=== PATIENT | male | born 1940 | race Caucasian/White ===

== ENCOUNTER 2021-02-14 13:51 | Inpatient (IN) ==
[2021-02-14] MEDS ORDERED: 0.9 % Sodium Chloride 1,000 ML IVC ONE (14:13)
[2021-02-14 14:39] LABS: Basophils # 0.1 K/mcL (0.0-0.2); Basophils % 0.4 %; Eosinophils % 0.1 %; Hematocrit 41.7 % (37.5-50.1); Hemoglobin 13.8 g/dL (12.9-16.9); Immature Granulocytes % 0.6 % (0-4); Lymphocytes # 0.5 K/mcL (0.6-4.6); Lymphocytes % 4.1 %; Mean Corpuscular HGB Conc 33.1 g/dL (31.6-35.5); Mean Corpuscular Volume 84.6 fL (83.0-100.0); Mean Platelet Volume 11.2 fL (9.4-12.4); Monocytes # 1.7 K/mcL (0.0-1.3); Platelet Count 237 K/mcL (140-400); Red Blood Count 4.93 M/mcL (4.19-5.50); Segmented Neutrophils % 79.8 %; White Blood Count 11.3 K/mcL (4.3-11.1)
[2021-02-14 14:46] LABS: VBG HCO3 26 mEq/L (21-27); VBG PCO2 40 mmHg (41-51); VBG PH 7.42 pH Units (7.32-7.42); VBG PO2 37 mmHg (25-50)
[2021-02-14 14:47] LABS: INR 1.2; Prothrombin Time 14.3 Seconds (9.4-12.1)
[2021-02-14 14:49] LABS: Activated Partial Thrombo Time 28.2 Seconds (26.0-36.0)
[2021-02-14 14:59] LABS: Alanine Aminotransferase 35 Units/L (7-52); Albumin 3.5 g/dL (3.5-5.7); Albumin/Globulin Ratio 0.9 (1.1-2.2); Alkaline Phosphatase 66 Units/L (34-104); Aspartate Amino Transferase 33 Units/L (13-39); BUN/Creatinine Ratio 29 (6-26); Bilirubin,Direct 0.3 mg/dL (0.0-0.2); Bilirubin,Indirect 0.5 mg/dL (0.0-1.0); Bilirubin,Total 0.8 mg/dL (0.3-1.0); Blood Urea Nitrogen 37 mg/dL (8-23); Calcium 9.3 mg/dL (8.6-10.3); Carbon Dioxide 29 mEq/L (23-29); Chloride 94 mEq/L (98-107); Globulin 3.7 g/dL (2.4-3.5); Glucose 152 mg/dL (70-105); Magnesium 2.1 mg/dL (1.6-2.6); Osmolality,Calculated 282 (280-300); Phosphorous 2.8 mg/dL (2.7-4.5); Potassium 4.3 mEq/L (3.5-5.1); Sodium 130 mEq/L (136-145); Total Protein 7.2 g/dL (6.4-8.9); Troponin I < 0.03 ng/mL (< 0.04); eGFR For African Americans > 60 (> 60); eGFR For Non-African Americans 55 (> 60)
[2021-02-14 15:10] LABS: Bilirubin,Urine Negative (Negative); Blood,Urine Large (Negative); Clarity,Urine Clear (Clear); Color,Urine Yellow (Yellow); Glucose,Urine (UA) Normal (Normal); Ketones,Urine Negative (Negative); Leukocyte Esterase,Urine Negative (Negative); Nitrite,Urine Negative (Negative); PH,Urine 5.5 pH Units (5.0-8.0); Protein,Urine 100 mg/dL (Neg-Trace); Specific Gravity,Urine 1.025 (1.010-1.025)
[2021-02-14 15:20] LABS: RBC,Urine 50-100 per hpf (0-3)
[2021-02-14 15:21] LABS: Squamous Epithelial Cell,Urine Few per hpf (None-Few)
[2021-02-14] MEDS ORDERED: levoFLOXacin 750 MG/150 ML 750 MG/150 ML BAG IVPB ONE (15:43)
[2021-02-14] MEDS ORDERED: Naloxone 0.4 MG/ML INJ IVP PRN (16:07)
[2021-02-14] MEDS ORDERED: Ondansetron 4 MG/2 ML VIAL IVP PRN (16:07)
[2021-02-14] MEDS ORDERED: Acetaminophen 325 MG TABLET PO PRN (16:07)
[2021-02-14] MEDS ORDERED: Ipratropium/Albuterol Neb 3 ML IH PRN (16:13)
[2021-02-14] MEDS: Nicotine 2 MG GUM BC PRN (21:03)
[2021-02-15 06:51] LABS: Basophils % 0.4 %; Eosinophils % 0.3 %; Hematocrit 38.2 % (37.5-50.1); Hemoglobin 12.3 g/dL (12.9-16.9); Immature Granulocytes % 0.9 % (0-4); Lymphocytes # 0.9 K/mcL (0.6-4.6); Lymphocytes % 10.3 %; Mean Corpuscular HGB Conc 32.2 g/dL (31.6-35.5); Mean Corpuscular Hemoglobin 27.6 pg (28.0-33.3); Mean Corpuscular Volume 85.8 fL (83.0-100.0); Mean Platelet Volume 11.7 fL (9.4-12.4); Monocytes # 1.4 K/mcL (0.0-1.3); Neutrophils # 6.7 K/mcL (1.6-8.9); Platelet Count 224 K/mcL (140-400); Red Blood Count 4.45 M/mcL (4.19-5.50); Segmented Neutrophils % 73.1 %; White Blood Count 9.2 K/mcL (4.3-11.1)
[2021-02-15 07:20] LABS: BUN/Creatinine Ratio 26 (6-26); Blood Urea Nitrogen 31 mg/dL (8-23); Calcium 9.2 mg/dL (8.6-10.3); Carbon Dioxide 28 mEq/L (23-29); Chloride 97 mEq/L (98-107); Glucose 103 mg/dL (70-105); Magnesium 2.1 mg/dL (1.6-2.6); Osmolality,Calculated 283 (280-300); Potassium 4.1 mEq/L (3.5-5.1); Sodium 133 mEq/L (136-145); eGFR For African Americans > 60 (> 60); eGFR For Non-African Americans 59 (> 60)
[2021-02-15] MEDS: amLODIPine 5 MG TABLET PO SCH (09:24)
[2021-02-15] MEDS: Furosemide 40 MG TABLET PO SCH (09:24)
[2021-02-15] MEDS: Aspirin Enteric Coated 81 MG Tablet PO SCH (09:24)
[2021-02-15] MEDS: Nicotine 2 MG GUM BC PRN (09:25)
[2021-02-15] MEDS: Trolamine Salicylate/Aloe Vera 85 APPL/85 GM TUBE TP PRN (16:27)
[2021-02-16] MEDS: amLODIPine 5 MG TABLET PO SCH (09:21)
[2021-02-16] MEDS: Furosemide 40 MG TABLET PO SCH (09:21)
[2021-02-16] MEDS: Aspirin Enteric Coated 81 MG Tablet PO SCH (09:21)
[2021-02-16] MEDS ORDERED: levoFLOXacin 750 MG/150 ML 750 MG/150 ML BAG IVPB SCH (16:00)
[2021-02-16] MEDS: Trolamine Salicylate/Aloe Vera 85 APPL/85 GM TUBE TP PRN (20:55)
[2021-02-17 06:01] LABS: Basophils # 0.1 K/mcL (0.0-0.2); Basophils % 0.7 %; Eosinophils # 0.2 K/mcL (0.0-0.6); Eosinophils % 2.5 %; Hematocrit 41.7 % (37.5-50.1); Hemoglobin 13.5 g/dL (12.9-16.9); Immature Granulocytes % 1.5 % (0-4); Lymphocytes # 1.2 K/mcL (0.6-4.6); Lymphocytes % 16.9 %; Mean Corpuscular HGB Conc 32.4 g/dL (31.6-35.5); Mean Corpuscular Hemoglobin 27.7 pg (28.0-33.3); Mean Corpuscular Volume 85.5 fL (83.0-100.0); Mean Platelet Volume 10.9 fL (9.4-12.4); Monocytes # 0.8 K/mcL (0.0-1.3); Monocytes % 11.1 %; Neutrophils # 4.6 K/mcL (1.6-8.9); Platelet Count 261 K/mcL (140-400); Red Blood Count 4.88 M/mcL (4.19-5.50); Red Cell Distribution Width 12.6 % (11.5-14.5); Segmented Neutrophils % 67.3 %; White Blood Count 6.9 K/mcL (4.3-11.1)
[2021-02-17 06:21] LABS: BUN/Creatinine Ratio 20 (6-26); Blood Urea Nitrogen 24 mg/dL (8-23); Calcium 9.5 mg/dL (8.6-10.3); Carbon Dioxide 30 mEq/L (23-29); Chloride 97 mEq/L (98-107); Glucose 112 mg/dL (70-105); Osmolality,Calculated 285 (280-300); Sodium 135 mEq/L (136-145); eGFR For African Americans > 60 (> 60); eGFR For Non-African Americans 59 (> 60)
[2021-02-17] MEDS: Aspirin Enteric Coated 81 MG Tablet PO SCH (08:11)
[2021-02-17] MEDS: amLODIPine 5 MG TABLET PO SCH (08:11)
[2021-02-17] MEDS: Furosemide 40 MG TABLET PO SCH (08:11)
[2021-02-17] MEDS: Trolamine Salicylate/Aloe Vera 85 APPL/85 GM TUBE TP PRN (20:12)
[2021-02-18 07:02] VITALS: BP 155/76
[2021-02-18] MEDS: Aspirin Enteric Coated 81 MG Tablet PO SCH (07:54)
[2021-02-18] MEDS: amLODIPine 5 MG TABLET PO SCH (07:55)
[2021-02-18] MEDS: Furosemide 40 MG TABLET PO SCH (07:55)
[2021-02-18] MEDS ORDERED: Sennosides/Docusate Sodium TABLET PO SCH (09:30)
== END 2021-02-18 11:20 | disposition other institution (70) | DRG 193 ==
LOC: INPPIK 13:51 → EMEROOPIK 13:51 → INPPIK 17:27
PROVIDERS: ADMIT Family Medicine; ATTEND Family Medicine

== ENCOUNTER 2021-02-16 18:37 | Inpatient (IN) ==
[2021-02-18] MEDS: levoFLOXacin 750 MG TABLET PO SCH (16:58)
[2021-02-18] MEDS: Acetaminophen 325 MG TABLET PO PRN (17:25)
[2021-02-18] MEDS: Trolamine Salicylate/Aloe Vera 85 APPL/85 GM TUBE TP PRN (18:25)
[2021-02-18] MEDS: Sennosides/Docusate Sodium TABLET PO SCH (20:13)
[2021-02-19 06:56] LABS: Basophils # 0.1 K/mcL (0.0-0.2); Eosinophils # 0.2 K/mcL (0.0-0.6); Eosinophils % 3.3 %; Hematocrit 40.5 % (37.5-50.1); Hemoglobin 13.2 g/dL (12.9-16.9); Immature Granulocytes % 1.5 % (0-4); Lymphocytes # 1.3 K/mcL (0.6-4.6); Lymphocytes % 18.7 %; Mean Corpuscular HGB Conc 32.6 g/dL (31.6-35.5); Mean Corpuscular Volume 85.8 fL (83.0-100.0); Mean Platelet Volume 10.7 fL (9.4-12.4); Monocytes # 0.8 K/mcL (0.0-1.3); Monocytes % 11.8 %; Neutrophils # 4.3 K/mcL (1.6-8.9); Platelet Count 262 K/mcL (140-400); Red Blood Count 4.72 M/mcL (4.19-5.50); Red Cell Distribution Width 12.6 % (11.5-14.5); Segmented Neutrophils % 63.7 %; White Blood Count 6.7 K/mcL (4.3-11.1)
[2021-02-19 07:17] LABS: BUN/Creatinine Ratio 18 (6-26); Blood Urea Nitrogen 24 mg/dL (8-23); Calcium 9.4 mg/dL (8.6-10.3); Carbon Dioxide 30 mEq/L (23-29); Chloride 98 mEq/L (98-107); Glucose 99 mg/dL (70-105); Osmolality,Calculated 284 (280-300); Potassium 4.1 mEq/L (3.5-5.1); Sodium 135 mEq/L (136-145); eGFR For African Americans > 60 (> 60); eGFR For Non-African Americans 52 (> 60)
[2021-02-19] MEDS: Aspirin Enteric Coated 81 MG Tablet PO SCH (09:53)
[2021-02-19] MEDS: Sennosides/Docusate Sodium TABLET PO SCH ×2 (09:54→20:30)
[2021-02-19] MEDS: Furosemide 40 MG TABLET PO SCH (09:54)
[2021-02-19] MEDS: amLODIPine 5 MG TABLET PO SCH (09:55)
[2021-02-19] MEDS: Trolamine Salicylate/Aloe Vera 85 APPL/85 GM TUBE TP PRN ×2 (14:08→20:47)
[2021-02-19] MEDS: Acetaminophen 325 MG TABLET PO PRN (14:08)
[2021-02-19] MEDS ORDERED: Ondansetron ODT 4 MG TAB.RAPDIS SL PRN (14:34)
[2021-02-20] MEDS: Trolamine Salicylate/Aloe Vera 85 APPL/85 GM TUBE TP PRN ×3 (06:40→21:37)
[2021-02-20] MEDS: Aspirin Enteric Coated 81 MG Tablet PO SCH (10:01)
[2021-02-20] MEDS: Sennosides/Docusate Sodium TABLET PO SCH (10:01)
[2021-02-20] MEDS: Furosemide 40 MG TABLET PO SCH (10:01)
[2021-02-20] MEDS: amLODIPine 5 MG TABLET PO SCH (10:02)
[2021-02-20] MEDS: levoFLOXacin 750 MG TABLET PO SCH (16:24)
[2021-02-20] MEDS: Acetaminophen 325 MG TABLET PO PRN (20:13)
[2021-02-21] MEDS: Acetaminophen 325 MG TABLET PO PRN ×2 (08:18→16:56)
[2021-02-21] MEDS: Aspirin Enteric Coated 81 MG Tablet PO SCH (08:18)
[2021-02-21] MEDS: amLODIPine 5 MG TABLET PO SCH (08:18)
[2021-02-21] MEDS: Furosemide 40 MG TABLET PO SCH (08:18)
[2021-02-21] MEDS: Trolamine Salicylate/Aloe Vera 85 APPL/85 GM TUBE TP PRN ×2 (09:32→21:20)
[2021-02-22] MEDS: Aspirin Enteric Coated 81 MG Tablet PO SCH (08:31)
[2021-02-22] MEDS: Furosemide 40 MG TABLET PO SCH (08:31)
[2021-02-22] MEDS: Acetaminophen 325 MG TABLET PO PRN (08:32)
[2021-02-22] MEDS: amLODIPine 5 MG TABLET PO SCH (08:32)
[2021-02-22] MEDS: levoFLOXacin 750 MG TABLET PO SCH (17:24)
[2021-02-23] MEDS: Aspirin Enteric Coated 81 MG Tablet PO SCH (08:07)
[2021-02-23] MEDS: Furosemide 40 MG TABLET PO SCH (08:07)
[2021-02-23] MEDS: amLODIPine 5 MG TABLET PO SCH (08:07)
[2021-02-23] MEDS ORDERED: E-Z-HD (BARIUM SULF) SUSPENSION PO ONE (10:41)
[2021-02-23] MEDS ORDERED: E-Z-PAQUE (BARIUM SULF) SUSP 1 BOTTLE PO ONE (10:41)
[2021-02-24] MEDS: Trolamine Salicylate/Aloe Vera 85 APPL/85 GM TUBE TP PRN (06:27)
[2021-02-24] MEDS: amLODIPine 5 MG TABLET PO SCH (10:09)
[2021-02-24] MEDS: Furosemide 40 MG TABLET PO SCH (10:09)
[2021-02-24] MEDS: Aspirin Enteric Coated 81 MG Tablet PO SCH (10:09)
[2021-02-24] MEDS: Acetaminophen 325 MG TABLET PO PRN (10:20)
[2021-02-25] MEDS: Trolamine Salicylate/Aloe Vera 85 APPL/85 GM TUBE TP PRN (06:46)
[2021-02-25 07:29] LABS: BUN/Creatinine Ratio 21 (6-26); Blood Urea Nitrogen 24 mg/dL (8-23); Calcium 9.1 mg/dL (8.6-10.3); Carbon Dioxide 30 mEq/L (23-29); Chloride 102 mEq/L (98-107); Glucose 98 mg/dL (70-105); Osmolality,Calculated 288 (280-300); Potassium 3.8 mEq/L (3.5-5.1); Sodium 137 mEq/L (136-145); eGFR For African Americans > 60 (> 60); eGFR For Non-African Americans 60 (> 60)
[2021-02-25 07:32] LABS: Basophils # 0.1 K/mcL (0.0-0.2); Eosinophils # 0.3 K/mcL (0.0-0.6); Eosinophils % 3.5 %; Hematocrit 41.1 % (37.5-50.1); Hemoglobin 13.3 g/dL (12.9-16.9); Immature Granulocytes % 1.2 % (0-4); Lymphocytes # 1.6 K/mcL (0.6-4.6); Lymphocytes % 21.4 %; Mean Corpuscular HGB Conc 32.4 g/dL (31.6-35.5); Mean Corpuscular Hemoglobin 27.8 pg (28.0-33.3); Mean Corpuscular Volume 85.8 fL (83.0-100.0); Mean Platelet Volume 10.9 fL (9.4-12.4); Monocytes # 0.8 K/mcL (0.0-1.3); Monocytes % 9.8 %; Neutrophils # 4.8 K/mcL (1.6-8.9); Platelet Count 215 K/mcL (140-400); Red Blood Count 4.79 M/mcL (4.19-5.50); Segmented Neutrophils % 63.1 %; White Blood Count 7.7 K/mcL (4.3-11.1)
[2021-02-25] MEDS: Aspirin Enteric Coated 81 MG Tablet PO SCH (08:12)
[2021-02-25] MEDS: amLODIPine 5 MG TABLET PO SCH (08:12)
[2021-02-25] MEDS: Furosemide 40 MG TABLET PO SCH (08:12)
[2021-02-25] MEDS: Nicotine 14 MG PATCH.TD24 TD SCH (08:13)
[2021-02-26] MEDS: amLODIPine 5 MG TABLET PO SCH (08:50)
[2021-02-26] MEDS: Aspirin Enteric Coated 81 MG Tablet PO SCH (08:51)
[2021-02-26] MEDS: Furosemide 40 MG TABLET PO SCH (08:51)
[2021-02-26] MEDS: Nicotine 14 MG PATCH.TD24 TD SCH (08:51)
[2021-02-27] MEDS: amLODIPine 5 MG TABLET PO SCH (08:40)
[2021-02-27] MEDS: Aspirin Enteric Coated 81 MG Tablet PO SCH (08:40)
[2021-02-27] MEDS: Furosemide 40 MG TABLET PO SCH (08:40)
[2021-02-27] MEDS: Nicotine 14 MG PATCH.TD24 TD SCH (08:42)
[2021-02-27] MEDS: Trolamine Salicylate/Aloe Vera 85 APPL/85 GM TUBE TP PRN (10:00)
[2021-02-28] MEDS: Furosemide 40 MG TABLET PO SCH (09:13)
[2021-02-28] MEDS: Aspirin Enteric Coated 81 MG Tablet PO SCH (09:13)
[2021-02-28] MEDS: amLODIPine 5 MG TABLET PO SCH (09:13)
[2021-02-28] MEDS: Acetaminophen 325 MG TABLET PO PRN (21:00)
[2021-02-28] MEDS: Trolamine Salicylate/Aloe Vera 85 APPL/85 GM TUBE TP PRN (21:00)
[2021-03-01] MEDS: Acetaminophen 325 MG TABLET PO PRN (09:33)
[2021-03-01] MEDS: amLODIPine 5 MG TABLET PO SCH (09:33)
[2021-03-01] MEDS: Aspirin Enteric Coated 81 MG Tablet PO SCH (09:33)
[2021-03-01] MEDS: Furosemide 40 MG TABLET PO SCH (09:34)
[2021-03-02] MEDS: amLODIPine 5 MG TABLET PO SCH (08:04)
[2021-03-02] MEDS: Aspirin Enteric Coated 81 MG Tablet PO SCH (08:04)
[2021-03-02] MEDS: Furosemide 40 MG TABLET PO SCH (08:04)
[2021-03-02] MEDS: Acetaminophen 325 MG TABLET PO PRN (20:14)
[2021-03-03] MEDS: Acetaminophen 325 MG TABLET PO PRN ×2 (08:55→20:20)
[2021-03-03] MEDS: Aspirin Enteric Coated 81 MG Tablet PO SCH (08:57)
[2021-03-03] MEDS: amLODIPine 5 MG TABLET PO SCH (08:57)
[2021-03-03] MEDS: Furosemide 40 MG TABLET PO SCH (08:57)
[2021-03-04] MEDS: Acetaminophen 325 MG TABLET PO PRN ×2 (10:26→19:58)
[2021-03-04] MEDS: amLODIPine 5 MG TABLET PO SCH (10:27)
[2021-03-04] MEDS: Furosemide 40 MG TABLET PO SCH (10:27)
[2021-03-04] MEDS: Aspirin Enteric Coated 81 MG Tablet PO SCH (10:28)
[2021-03-05] MEDS: Sennosides/Docusate Sodium TABLET PO SCH ×2 (08:21→20:07)
[2021-03-05] MEDS: Aspirin Enteric Coated 81 MG Tablet PO SCH (08:22)
[2021-03-05] MEDS: Furosemide 40 MG TABLET PO SCH (08:22)
[2021-03-05] MEDS: amLODIPine 5 MG TABLET PO SCH (08:22)
[2021-03-05 10:59] LABS: Basophils # 0.1 K/mcL (0.0-0.2); Basophils % 0.6 %; Eosinophils # 0.3 K/mcL (0.0-0.6); Eosinophils % 4.4 %; Hematocrit 41.5 % (37.5-50.1); Hemoglobin 13.3 g/dL (12.9-16.9); Immature Granulocytes % 0.9 % (0-4); Lymphocytes # 1.6 K/mcL (0.6-4.6); Lymphocytes % 20.5 %; Mean Corpuscular Hemoglobin 27.7 pg (28.0-33.3); Mean Corpuscular Volume 86.3 fL (83.0-100.0); Mean Platelet Volume 11.9 fL (9.4-12.4); Monocytes # 0.9 K/mcL (0.0-1.3); Neutrophils # 4.9 K/mcL (1.6-8.9); Platelet Count 188 K/mcL (140-400); Red Blood Count 4.81 M/mcL (4.19-5.50); Red Cell Distribution Width 12.8 % (11.5-14.5); Segmented Neutrophils % 62.6 %; White Blood Count 7.8 K/mcL (4.3-11.1)
[2021-03-05 11:15] LABS: Alanine Aminotransferase 22 Units/L (7-52); Albumin 3.4 g/dL (3.5-5.7); Albumin/Globulin Ratio 1.2 (1.1-2.2); Alkaline Phosphatase 64 Units/L (34-104); Aspartate Amino Transferase 27 Units/L (13-39); BUN/Creatinine Ratio 23 (6-26); Bilirubin,Total 0.6 mg/dL (0.3-1.0); Blood Urea Nitrogen 26 mg/dL (8-23); Calcium 9.4 mg/dL (8.6-10.3); Carbon Dioxide 29 mEq/L (23-29); Chloride 100 mEq/L (98-107); Globulin 2.8 g/dL (2.4-3.5); Glucose 96 mg/dL (70-105); Osmolality,Calculated 289 (280-300); Potassium 4.2 mEq/L (3.5-5.1); Sodium 137 mEq/L (136-145); Total Protein 6.2 g/dL (6.4-8.9); eGFR For African Americans > 60 (> 60); eGFR For Non-African Americans > 60 (> 60)
[2021-03-06] MEDS: Aspirin Enteric Coated 81 MG Tablet PO SCH (08:01)
[2021-03-06] MEDS: amLODIPine 5 MG TABLET PO SCH (08:02)
[2021-03-06] MEDS: Sennosides/Docusate Sodium TABLET PO SCH ×2 (08:02→20:27)
[2021-03-06] MEDS: Furosemide 40 MG TABLET PO SCH (08:02)
[2021-03-07] MEDS: Sennosides/Docusate Sodium TABLET PO SCH ×2 (08:03→21:34)
[2021-03-07] MEDS: Aspirin Enteric Coated 81 MG Tablet PO SCH (08:03)
[2021-03-07] MEDS: Furosemide 40 MG TABLET PO SCH (08:04)
[2021-03-07] MEDS: amLODIPine 5 MG TABLET PO SCH (08:04)
[2021-03-08 07:20] LABS: Basophils # 0.1 K/mcL (0.0-0.2); Basophils % 0.6 %; Eosinophils # 0.4 K/mcL (0.0-0.6); Hematocrit 38.4 % (37.5-50.1); Hemoglobin 12.3 g/dL (12.9-16.9); Lymphocytes # 1.9 K/mcL (0.6-4.6); Lymphocytes % 20.5 %; Mean Corpuscular Hemoglobin 27.6 pg (28.0-33.3); Mean Corpuscular Volume 86.3 fL (83.0-100.0); Mean Platelet Volume 12.4 fL (9.4-12.4); Monocytes # 0.9 K/mcL (0.0-1.3); Monocytes % 9.8 %; Neutrophils # 5.8 K/mcL (1.6-8.9); Platelet Count 171 K/mcL (140-400); Red Blood Count 4.45 M/mcL (4.19-5.50); Red Cell Distribution Width 12.9 % (11.5-14.5); Segmented Neutrophils % 64.1 %; White Blood Count 9.1 K/mcL (4.3-11.1)
[2021-03-08 07:46] LABS: BUN/Creatinine Ratio 21 (6-26); Blood Urea Nitrogen 25 mg/dL (8-23); Calcium 8.8 mg/dL (8.6-10.3); Carbon Dioxide 29 mEq/L (23-29); Chloride 102 mEq/L (98-107); Glucose 92 mg/dL (70-105); Osmolality,Calculated 290 (280-300); Potassium 4.1 mEq/L (3.5-5.1); Sodium 138 mEq/L (136-145); eGFR For African Americans > 60 (> 60); eGFR For Non-African Americans 60 (> 60)
[2021-03-08] MEDS: Aspirin Enteric Coated 81 MG Tablet PO SCH (10:47)
[2021-03-08] MEDS: Sennosides/Docusate Sodium TABLET PO SCH ×2 (10:47→19:53)
[2021-03-08] MEDS: amLODIPine 5 MG TABLET PO SCH (10:47)
[2021-03-08] MEDS: Furosemide 40 MG TABLET PO SCH (10:47)
[2021-03-09 12:13] LABS: Basophils % 0.4 %; Eosinophils # 0.4 K/mcL (0.0-0.6); Eosinophils % 4.2 %; Hematocrit 39.7 % (37.5-50.1); Immature Granulocytes % 1.2 % (0-4); Lymphocytes # 1.9 K/mcL (0.6-4.6); Lymphocytes % 20.2 %; Mean Corpuscular HGB Conc 32.7 g/dL (31.6-35.5); Mean Corpuscular Hemoglobin 27.9 pg (28.0-33.3); Mean Corpuscular Volume 85.2 fL (83.0-100.0); Mean Platelet Volume 12.1 fL (9.4-12.4); Monocytes % 10.6 %; Neutrophils # 5.9 K/mcL (1.6-8.9); Platelet Count 166 K/mcL (140-400); Red Blood Count 4.66 M/mcL (4.19-5.50); Red Cell Distribution Width 12.8 % (11.5-14.5); Segmented Neutrophils % 63.4 %; White Blood Count 9.3 K/mcL (4.3-11.1)
[2021-03-09 12:16] LABS: ABG Base Excess 1 mEq/L (-2 to 3); ABG HCO3 27 mEq/L (21-27); ABG Oxygen Saturation 88 % (95-98); ABG PCO2 47 mmHg (35-45); ABG PH 7.36 pH Units (7.32-7.45); ABG PO2 58 mmHg (85-104); ABG TCO2 28 mEq/L (20-26)
[2021-03-09 12:47] LABS: Alanine Aminotransferase 29 Units/L (7-52); Albumin 3.5 g/dL (3.5-5.7); Albumin/Globulin Ratio 1.3 (1.1-2.2); Alkaline Phosphatase 57 Units/L (34-104); Aspartate Amino Transferase 24 Units/L (13-39); BUN/Creatinine Ratio 21 (6-26); Bilirubin,Total 0.5 mg/dL (0.3-1.0); Blood Urea Nitrogen 25 mg/dL (8-23); Calcium 9.2 mg/dL (8.6-10.3); Carbon Dioxide 26 mEq/L (23-29); Chloride 101 mEq/L (98-107); Globulin 2.8 g/dL (2.4-3.5); Glucose 100 mg/dL (70-105); Osmolality,Calculated 286 (280-300); Potassium 3.9 mEq/L (3.5-5.1); Sodium 136 mEq/L (136-145); Total Protein 6.3 g/dL (6.4-8.9); eGFR For African Americans > 60 (> 60); eGFR For Non-African Americans 59 (> 60)
[2021-03-09 13:13] LABS: Troponin I < 0.03 ng/mL (< 0.04)
[2021-03-09] MEDS: Furosemide 40 MG TABLET PO SCH (16:57)
[2021-03-09] MEDS: Aspirin Enteric Coated 81 MG Tablet PO SCH (16:57)
[2021-03-09] MEDS: Sennosides/Docusate Sodium TABLET PO SCH ×2 (16:58→21:03)
[2021-03-09] MEDS: amLODIPine 5 MG TABLET PO SCH (16:58)
[2021-03-10] MEDS: amLODIPine 5 MG TABLET PO SCH ×2 (08:34→09:00)
[2021-03-10] MEDS: Aspirin Enteric Coated 81 MG Tablet PO SCH ×2 (08:34→08:59)
[2021-03-10] MEDS: Sennosides/Docusate Sodium TABLET PO SCH ×3 (08:34→20:10)
[2021-03-10] MEDS: Furosemide 40 MG TABLET PO SCH ×2 (08:35→09:00)
[2021-03-11] MEDS: Aspirin Enteric Coated 81 MG Tablet PO SCH (11:00)
[2021-03-11] MEDS: Furosemide 40 MG TABLET PO SCH (11:01)
[2021-03-11] MEDS: Sennosides/Docusate Sodium TABLET PO SCH ×2 (11:02→20:25)
[2021-03-11] MEDS: amLODIPine 5 MG TABLET PO SCH (11:02)
[2021-03-12] MEDS: amLODIPine 5 MG TABLET PO SCH (08:15)
[2021-03-12] MEDS: Furosemide 40 MG TABLET PO SCH (08:17)
[2021-03-12] MEDS: Sennosides/Docusate Sodium TABLET PO SCH ×2 (08:18→20:57)
[2021-03-12] MEDS: Aspirin Enteric Coated 81 MG Tablet PO SCH (08:18)
[2021-03-13] MEDS: Sennosides/Docusate Sodium TABLET PO SCH ×2 (08:06→21:38)
[2021-03-13] MEDS: Aspirin Enteric Coated 81 MG Tablet PO SCH (08:07)
[2021-03-13] MEDS: amLODIPine 5 MG TABLET PO SCH (08:07)
[2021-03-13] MEDS: Furosemide 40 MG TABLET PO SCH (08:08)
[2021-03-13] MEDS: Acetaminophen 325 MG TABLET PO PRN (21:44)
[2021-03-14] MEDS: amLODIPine 5 MG TABLET PO SCH (08:29)
[2021-03-14] MEDS: Sennosides/Docusate Sodium TABLET PO SCH ×2 (08:29→20:28)
[2021-03-14] MEDS: Furosemide 40 MG TABLET PO SCH (08:30)
[2021-03-14] MEDS: Aspirin Enteric Coated 81 MG Tablet PO SCH (08:30)
[2021-03-14] MEDS: Acetaminophen 325 MG TABLET PO PRN (15:38)
[2021-03-15] MEDS: Sennosides/Docusate Sodium TABLET PO SCH ×2 (09:36→20:09)
[2021-03-15] MEDS: amLODIPine 5 MG TABLET PO SCH (09:37)
[2021-03-15] MEDS: Aspirin Enteric Coated 81 MG Tablet PO SCH (09:37)
[2021-03-15] MEDS: Furosemide 40 MG TABLET PO SCH (09:37)
[2021-03-15] MEDS: Acetaminophen 325 MG TABLET PO PRN (14:28)
[2021-03-16] MEDS: Acetaminophen 325 MG TABLET PO PRN (07:37)
[2021-03-16] MEDS: amLODIPine 5 MG TABLET PO SCH (07:37)
[2021-03-16] MEDS: Furosemide 40 MG TABLET PO SCH (07:37)
[2021-03-16] MEDS: Aspirin Enteric Coated 81 MG Tablet PO SCH (07:37)
[2021-03-16] MEDS: Sennosides/Docusate Sodium TABLET PO SCH ×2 (07:38→20:17)
[2021-03-17] MEDS: Sennosides/Docusate Sodium TABLET PO SCH ×2 (08:37→20:31)
[2021-03-17] MEDS: amLODIPine 5 MG TABLET PO SCH (08:37)
[2021-03-17] MEDS: Furosemide 40 MG TABLET PO SCH (08:37)
[2021-03-17] MEDS: Aspirin Enteric Coated 81 MG Tablet PO SCH (08:37)
[2021-03-17] MEDS: Acetaminophen 325 MG TABLET PO PRN (15:18)
[2021-03-18] MEDS: Aspirin Enteric Coated 81 MG Tablet PO SCH (08:34)
[2021-03-18] MEDS: Furosemide 40 MG TABLET PO SCH (08:34)
[2021-03-18] MEDS: amLODIPine 5 MG TABLET PO SCH (08:34)
[2021-03-18] MEDS: Sennosides/Docusate Sodium TABLET PO SCH ×2 (08:34→20:26)
[2021-03-18] MEDS: Acetaminophen 325 MG TABLET PO PRN (20:26)
[2021-03-19 06:32] VITALS: BP 136/71; PULSE 50; RESP 16; TEMP 98.6; O2SAT 98
[2021-03-19] MEDS: Furosemide 40 MG TABLET PO SCH (08:45)
[2021-03-19] MEDS: Sennosides/Docusate Sodium TABLET PO SCH (08:45)
[2021-03-19] MEDS: Aspirin Enteric Coated 81 MG Tablet PO SCH (08:45)
[2021-03-19] MEDS: amLODIPine 5 MG TABLET PO SCH (08:45)
[2021-03-19] MEDS: Acetaminophen 325 MG TABLET PO PRN (08:46)
== END 2021-03-19 18:14 | disposition hospice, home (50) | DRG 56 ==
LOC: INPPIK 02-18 11:28
PROVIDERS: ADMIT Family Medicine; ATTEND Family Medicine